=== PATIENT | female | born 1935 | race Caucasian/White ===

== ENCOUNTER → 2016-11-12 | Outpatient (CLI) | payer MEDICARE, OTHER ==
[~2016-11-12] MED LIST: ALMACONE 360 M360 ML PEG; ARTIFICIAL TEAR15 M7 OP; ATIVAN; ATIVAN 0.50.5 MG/TAB PO; ATROVENT I0.2 MG/1 M IH; COLACE 100100 MG/CAP PO; COZAAR 50MG50 MG/TAB PEG; DEBROX; DEBROX OT; DILANTIN O100 MG/4 M PEG; DOXYCYCLINE 10100 MG PO; DULCOLAX; DULCOLAX S10 MG/SUPP RC; DULCOLAX TAB5 MG PO; EFFEXOR 3737.5 MG/TA PEG; EFFEXOR 75M75 MG/TAB PO; EFFEXOR-XR150 MG PO; EXELON PATCH; IMODIUM 2MG CAPS2 MG PEG; LEVAQUIN 5500 MG/TA1 PO; LIPITOR 10MG10 MG PO; MILK OF MA400 MG/5 M PEG; MILK OF MA400 MG/51 PO; MIRALAX PA17 GM/Dose PO; MULTIPLE VITAMI1 CAP PO; MVI; MYLANTA 360 ML360 ML PO; NORCO 325 MG-51 TAB PEG; NORCO 325 MG-51 TAB PO; NYSTATIN POWDER15 GM TOP; PAXIL 20MG20 MG PO; PEPCID 20MG TAB20 MG PO; PLAVIX 75MG TAB75 MG PEG; PLAVIX 75MG TAB75 MG PO; POLYSPORIN OINT30 GM TP; PREDNISONE 5MG5 MG PO; PREDNISONE1 MG; PRILOSEC 20MG20 MG PO; RISPERDAL 0.20.25 MG PO; RISPERDAL 1M1 MG/TAB PEG; RISPERDAL 1M1 MG/TAB PO; SENOKOT S 50 MG1 TAB PEG; SYNTHROID 0.0.025 MG PEG; TRIPLE ANTIBIOTI1 TU TP; TUSSIN DM CLEA120 ML PEG; TYLENOL 325MG325 MG PO; TYLENOL SU650 MG/SUP RC; ULTRAM 50MG TAB50 MG PO; VITAMIN D2000 I1 PO; VITAMIN D32000 I1 PEG; ZANTAC 150MG15 MG/M1 PEG; ZETIA10 MG PO; ZOCOR 20MG20 MG PO; ZOFRAN 4MG T4 MG/TAB PEG; imipramine
[2016-11-12 14:11] LABS: ADJUSTED CALCIUM 10.4 mg/dL (8.4-10.2); BILIRUBIN,TOTAL 0.5 mg/dL (0.0-1.0); CALCIUM 10.4 mg/dL (8.4-10.2); CREATININE, serum 0.44 mg/dL (0.52-1.25); POTASSIUM 4.2 mmol/L (3.4-5.0); TOTAL PROTEIN 6.9 gm/dL (6.4-8.2)
== END ==
LOC: ZCOL.LAB 13:15
PROVIDERS: Internal Medicine
DX: Z01.89 Encounter for other specified special examinations (principal)

== ENCOUNTER 2017-02-23 06:54 | Day surgery (SDC) | payer MEDICARE, OTHER ==
[~2017-02-23] VITALS: Ht 172.7 cm; Wt 76.4 kg
[~2017-02-23 06:54] MED LIST changes: -ALMACONE 360 M360 ML PEG; -ARTIFICIAL TEAR15 M7 OP; -ATROVENT I0.2 MG/1 M IH; -DEBROX OT; -EFFEXOR 3737.5 MG/TA PEG; -IMODIUM 2MG CAPS2 MG PEG; -MIRALAX PA17 GM/Dose PO; -NORCO 325 MG-51 TAB PEG; -NORCO 325 MG-51 TAB PO; -NYSTATIN POWDER15 GM TOP; -PLAVIX 75MG TAB75 MG PEG; -POLYSPORIN OINT30 GM TP; -RISPERDAL 1M1 MG/TAB PEG; -TRIPLE ANTIBIOTI1 TU TP; -TUSSIN DM CLEA120 ML PEG; -VITAMIN D32000 I1 PEG; -ZANTAC 150MG15 MG/M1 PEG; -ZOFRAN 4MG T4 MG/TAB PEG
[2017-02-23] MEDS ORDERED: ZOFRAN 4MG T4 MG/TAB PEG (07:22)
[2017-02-23] MEDS ORDERED: ZANTAC 150MG15 MG/M1 PEG (07:23)
[2017-02-23] MEDS ORDERED: NYSTATIN POWDER15 GM TOP (07:24)
[2017-02-23] MEDS ORDERED: ULTRAM 50MG TAB50 MG PO (07:25)
[2017-02-23] MEDS ORDERED: PLAVIX 75MG TAB75 MG PEG (07:26)
[2017-02-23] MEDS ORDERED: VITAMIN D32000 I1 PEG (07:29)
[2017-02-23] MEDS ORDERED: TYLENOL 325MG325 MG PO (07:33)
[2017-02-23] MEDS ORDERED: DEBROX OT (07:34)
[2017-02-23] MEDS ORDERED: ALMACONE 360 M360 ML PEG (07:36)
[2017-02-23] MEDS ORDERED: TRIPLE ANTIBIOTI1 TU TP (07:37)
[2017-02-23] MEDS ORDERED: EFFEXOR 3737.5 MG/TA PEG (07:38)
[2017-02-23] MEDS ORDERED: TUSSIN DM CLEA120 ML PEG (07:39)
[2017-02-23] MEDS ORDERED: DILANTIN O100 MG/4 M PEG (07:41)
[2017-02-23] MEDS ORDERED: IMODIUM 2MG CAPS2 MG PEG (07:43)
[2017-02-23] MEDS ORDERED: NORCO 325 MG-51 TAB PEG (07:45)
[2017-02-23] MEDS ORDERED: RISPERDAL 1M1 MG/TAB PEG (07:45)
[2017-02-23] MEDS ORDERED: NORCO 325 MG-51 TAB PO (07:45)
[2017-02-23] MEDS ORDERED: MIRALAX PA17 GM/Dose PO (07:46)
[2017-02-23] MEDS ORDERED: ARTIFICIAL TEAR15 M7 OP (07:46)
[2017-02-23] MEDS ORDERED: ATROVENT I0.2 MG/1 M IH (07:48)
[2017-02-23] MEDS ORDERED: POLYSPORIN OINT30 GM TP (07:49)
[2017-02-23 08:33] VITALS: BP 139/70; PULSE 70; TEMP 98
[2017-02-23 09:00] VITALS: BP 159/72; PULSE 80; TEMP 98
[2017-02-23 09:15] VITALS: BP 172/72; PULSE 79
[2017-02-23] MEDS ORDERED: PRILOSEC 20MG20 MG PO (09:23)
[2017-02-23 09:30] VITALS: BP 175/74; PULSE 86
[2017-02-23 09:45] VITALS: BP 164/67; PULSE 79
== END 2017-02-23 10:30 | disposition home or self-care (01) ==
LOC: SDCO 06:54
DX: K22.2 Esophageal obstruction (principal); T18.2XXA Foreign body in stomach, initial encounter; K20.9 Esophagitis, unspecified; K29.30 Chronic superficial gastritis without bleeding; K21.9 Gastro-esophageal reflux disease without esophagitis; K29.80 Duodenitis without bleeding; M19.90 Unspecified osteoarthritis, unspecified site; E03.9 Hypothyroidism, unspecified; Z90.710 Acquired absence of both cervix and uterus; Z90.721 Acquired absence of ovaries, unilateral; Z96.649 Presence of unspecified artificial hip joint; Z86.73 Personal history of transient ischemic attack (TIA), and cerebral infarction without residual deficits
CPT/HCPCS: B4087; C1726; J2704; J7120

== ENCOUNTER → 2017-04-30 | Outpatient (CLI) | payer MEDICARE, OTHER ==
[~2017-04-30] MED LIST changes: +ALMACONE 360 M360 ML PEG; +ARTIFICIAL TEAR15 M7 OP; +ATROVENT I0.2 MG/1 M IH; +DEBROX OT; +EFFEXOR 3737.5 MG/TA PEG; +IMODIUM 2MG CAPS2 MG PEG; +MIRALAX PA17 GM/Dose PO; +NORCO 325 MG-51 TAB PEG; +NORCO 325 MG-51 TAB PO; +NYSTATIN POWDER15 GM TOP; +PLAVIX 75MG TAB75 MG PEG; +POLYSPORIN OINT30 GM TP; +RISPERDAL 1M1 MG/TAB PEG; +TRIPLE ANTIBIOTI1 TU TP; +TUSSIN DM CLEA120 ML PEG; +VITAMIN D32000 I1 PEG; +ZANTAC 150MG15 MG/M1 PEG; +ZOFRAN 4MG T4 MG/TAB PEG
[2017-04-30 16:11] LABS: ADJUSTED CALCIUM 10.2 mg/dL (8.4-10.2); ALBUMIN 3.8 gm/dL (3.5-5.0); BILIRUBIN,TOTAL 0.3 mg/dL (0.0-1.0); CREATININE, serum 0.45 mg/dL (0.52-1.25); POTASSIUM 4.4 mmol/L (3.4-5.0); TOTAL PROTEIN 6.3 gm/dL (6.4-8.2)
== END ==
LOC: ZCOL.LAB 15:43
PROVIDERS: Internal Medicine
DX: G30.9 Alzheimer's disease, unspecified (principal)

== ENCOUNTER 2017-07-15 14:56 | Emergency (ER) | payer MEDICARE, OTHER ==
[~2017-07-15] VITALS: Ht 160 cm; Wt 76.5 kg
[2017-07-15 15:03] VITALS: BP 165/73; PULSE 73; TEMP 98.3
== END 2017-07-15 16:45 | disposition home or self-care (01) ==
LOC: COL.ER 14:56
DX: K94.23 Gastrostomy malfunction (principal); F03.90 Unspecified dementia, unspecified severity, without behavioral disturbance, psychotic disturbance, mood disturbance, and anxiety; Z90.710 Acquired absence of both cervix and uterus; Z86.73 Personal history of transient ischemic attack (TIA), and cerebral infarction without residual deficits

== ENCOUNTER → 2017-10-26 | Outpatient (CLI) | payer MEDICARE, OTHER ==
[2017-10-26 10:35] LABS: ALBUMIN 3.7 gm/dL (3.5-5.0); BILIRUBIN,TOTAL 0.2 mg/dL (0.0-1.0); CALCIUM 9.9 mg/dL (8.4-10.2); CREATININE, serum 0.45 mg/dL (0.52-1.25); POTASSIUM 4.1 mmol/L (3.4-5.0); TOTAL PROTEIN 6.3 gm/dL (6.4-8.2)
== END ==
LOC: ZCOL.LAB 09:58
PROVIDERS: Internal Medicine
DX: G30.8 Other Alzheimer's disease (principal); F02.81 Dementia in other diseases classified elsewhere, unspecified severity, with behavioral disturbance; G89.29 Other chronic pain; Z79.899 Other long term (current) drug therapy

== ENCOUNTER → 2017-11-03 | Outpatient (CLI) | payer MEDICARE, OTHER | LOC: ZCOL.LAB 16:29 | DX: G40.909 Epilepsy, unspecified, not intractable, without status epilepticus (principal) ==

== ENCOUNTER → 2017-12-08 | Outpatient (CLI) | payer MEDICARE, OTHER ==
[2017-12-08 10:17] LABS: BILIRUBIN,TOTAL 0.3 mg/dL (0.0-1.0); CALCIUM 10.4 mg/dL (8.4-10.2); CREATININE, serum 0.45 mg/dL (0.52-1.25); POTASSIUM 4.3 mmol/L (3.4-5.0)
== END ==
LOC: ZCOL.LAB 09:51
PROVIDERS: Nurse Practitioner
DX: R11.10 Vomiting, unspecified (principal); Z93.1 Gastrostomy status

== ENCOUNTER → 2017-12-21 | Outpatient (CLI) | payer MEDICARE, OTHER | LOC: ZCOL.LAB 15:39 | DX: R11.10 Vomiting, unspecified (principal) ==

== ENCOUNTER → 2018-04-12 | Outpatient (CLI) | payer MEDICARE, OTHER ==
[2018-04-12 13:40] LABS: ALBUMIN 3.6 gm/dL (3.5-5.0); BILIRUBIN,TOTAL 0.2 mg/dL (0.0-1.0); CALCIUM 9.7 mg/dL (8.4-10.2); CREATININE, serum 0.39 mg/dL (0.52-1.25); POTASSIUM 4.5 mmol/L (3.4-5.0); TOTAL PROTEIN 6.4 gm/dL (6.4-8.2)
== END ==
LOC: ZCOL.LAB 13:20
PROVIDERS: Internal Medicine
DX: Z93.1 Gastrostomy status (principal)

== ENCOUNTER → 2018-05-31 | Outpatient (REF) | LOC: ZCOL.LAB 13:44 | DX: G40.909 Epilepsy, unspecified, not intractable, without status epilepticus (principal) ==

== ENCOUNTER 2018-06-05 11:45 | Emergency (ER) | payer MEDICARE, OTHER ==
[~2018-06-05] VITALS: Ht 170.2 cm; Wt 76.3 kg
[2018-06-05 11:50] VITALS: BP 141/82; TEMP 97.5
[2018-06-05] MEDS ORDERED: NEXIUM ORA40 MG/Pack PEG (12:22)
[2018-06-05] MEDS ORDERED: ISOSOURCE 1.51000 M1 PO (12:25)
[2018-06-05] MEDS ORDERED: ALMACONE 360 M360 ML PO (12:26)
[2018-06-05] MEDS ORDERED: ZANTAC 150MG15 MG/M1 PEG (12:28)
[2018-06-05 13:59] VITALS: PULSE 86
== END 2018-06-05 14:00 | disposition home or self-care (01) ==
LOC: COL.ER 11:45
DX: K94.23 Gastrostomy malfunction (principal); Z86.73 Personal history of transient ischemic attack (TIA), and cerebral infarction without residual deficits; Z79.02 Long term (current) use of antithrombotics/antiplatelets